=== PATIENT | female | born 1945 | race African-American/Black ===

== ENCOUNTER 2021-12-02 08:38 | Emergency (ER) | payer MEDICARE, BC ==
[~2021-12-02] VITALS: Ht 172.7 cm; Wt 90.0 kg
[2021-12-02 08:53] VITALS: BP 127/77
[2021-12-02] MEDS ORDERED: TOPUD MT (10:31)
[2021-12-02] MEDS ORDERED: FLUT16SP15 BOTHNSTRLS (10:31)
== END 2021-12-02 10:52 | disposition home or self-care (01) ==
LOC: ER 08:38
DX: U07.1 COVID-19 (principal); E11.9 Type 2 diabetes mellitus without complications; I10 Essential (primary) hypertension; Z88.1 Allergy status to other antibiotic agents
CPT/HCPCS: 87426; 99283; C9803

== ENCOUNTER 2021-12-16 07:00 | Emergency (ER) | payer MEDICARE, BC ==
[~2021-12-16] VITALS: Ht 172.7 cm; Wt 82.0 kg
[~2021-12-16 07:00] MED LIST: FLUT16SP15 BOTHNSTRLS; TOPUD MT
[2021-12-16 09:17] LABS: CLARITY URINE CLEAR (CLEAR); COLOR URINE YELLOW (YELLOW); KETONES URINE 2+ (NEGATIVE); LEUKOCYTE ESTERASE URINE 1+ (NEGATIVE); NITRITE URINE NEGATIVE (NEGATIVE); OCCULT BLOOD URINE NEGATIVE (NEGATIVE); PROTEIN URINE NEGATIVE (NEGATIVE); UROBILINOGEN URINE 0.2 E.U./dL (0.2-1.0)
[2021-12-16 11:10] VITALS: BP 148/77
[2021-12-16] MEDS ORDERED: CEPH500C2 MT (11:19)
== END 2021-12-16 11:45 | disposition home or self-care (01) ==
LOC: ER 07:00
DX: J02.9 Acute pharyngitis, unspecified (principal); E11.9 Type 2 diabetes mellitus without complications; I10 Essential (primary) hypertension; Z20.822 Contact with and (suspected) exposure to COVID-19; Z88.1 Allergy status to other antibiotic agents
CPT/HCPCS: 81003; 82962; 87426; 87804; 99283; C9803